=== PATIENT | female | born 1965 | race Caucasian/White ===

== ENCOUNTER → 2019-06-05 | Outpatient (CLI) | payer SELFPAY | PROVIDERS: Family Provider Internal Medicine; Visit Provider Podiatrist Foot & Ankle Surgery | DX: Z46.89 Encounter for fitting and adjustment of other specified devices (principal); S93.335D Other dislocation of left foot, subsequent encounter; X58.XXXD Exposure to other specified factors, subsequent encounter | CPT/HCPCS: L3030 ==

== ENCOUNTER → 2019-08-13 12:35 | Outpatient (BNVA) | payer MEDICARE, MEDICAID, SELFPAY | PROVIDERS: Family Provider Internal Medicine; PCP Internal Medicine; Visit Provider Specialist | DX: R25.1 Tremor, unspecified (principal) | CPT/HCPCS: 99214 ==

== ENCOUNTER → 2020-02-13 14:58 | Outpatient (BNVA) | payer MEDICARE, MEDICAID, SELFPAY | PROVIDERS: Family Provider Internal Medicine; PCP Internal Medicine; Visit Provider Podiatrist Foot & Ankle Surgery | DX: M79.672 Pain in left foot (principal) | CPT/HCPCS: 73630 ==

== ENCOUNTER 2020-03-17 15:15 | Outpatient (CLI) | payer MEDICARE, MEDICAID, SELFPAY ==
--- NOTE | 2020-03-17 15:24 | MM_ITS ---
WS: [id number] SCREENING DIGITAL MAMMOGRAM WITH CAD HISTORY: SCREENING COMPARISON: 04/25/2014 Bilateral CC and MLO views submitted. Computer aided detection analyzed. Breast composition: There are scattered areas of fibroglandular density. No suspicious masses, microc alcifications or architectural distortion. Benign calcification RIGHT breast. Overall no change in th e fibroglandular pattern. MM/[place] [id number] IMPRESSION: BI-RADS: 2-Benign FOLLOW UP: 1 Year Follow-up
--- NOTE | 2020-03-17 16:18 | XR_ITS ---
WS: [id number] SCREENING DEXA SCAN [employer] CLINICAL INFORMATION: POSTMENOPAUSAL ESTROGEN DEFICIENCY COMPARISON: None. FINDINGS: The L1-L4 bone mineral density measures 0.905 g/cm2. This corresponds to a T score score of -2.3 and Z score of -2.7. Left femoral neck bone mineral density measures 0.941 g/cm2. This corresponds to a T score of -0.5 an d Z score of -0.7. Right femoral neck bone mineral density measures 0.922 g/cm2. This corresponds to a T score -0.7of an d Z score of -0.9. Mean femoral neck bone mineral density measures 0.931 g/cm2. This corresponds to a T score of -0.6 an d Z score of -0.8. XR/XR DEXA axial skeleton* [id number] IMPRESSION: Osteopenia lumbar spine. Patient's FRAX calculated 10 year probability for major osteoporotic fracture i s 6.2 % and osteoporotic hip fracture is 0.6%.
== END 2020-03-17 15:16 | disposition home or self-care (01) ==
LOC: RADSHAW 15:23
PROVIDERS: PCP Internal Medicine; Visit Provider Physician Assistant
DX: Z78.0 Asymptomatic menopausal state (principal); Z12.31 Encounter for screening mammogram for malignant neoplasm of breast; M85.88 Other specified disorders of bone density and structure, other site
CPT/HCPCS: 77067; 77080

== ENCOUNTER → 2020-12-17 13:53 | Outpatient (BNVA) | payer MEDICARE, MEDICAID, SELFPAY | PROVIDERS: PCP Internal Medicine; Visit Provider Specialist | DX: G25.0 Essential tremor (principal); Z71.89 Other specified counseling; Z87.891 Personal history of nicotine dependence | CPT/HCPCS: 99214 ==

== ENCOUNTER → 2021-04-14 14:09 | Outpatient (BNVA) | payer MEDICARE, MEDICAID, SELFPAY | PROVIDERS: PCP Internal Medicine; Referring Provider Internal Medicine; Visit Provider Specialist | DX: R20.0 Anesthesia of skin (principal); R20.2 Paresthesia of skin; Z87.891 Personal history of nicotine dependence | CPT/HCPCS: 95910 ==

== ENCOUNTER 2021-06-06 13:13 | Emergency (ER) | payer MEDICARE, MEDICAID, SELFPAY ==
[2021-06-06 13:26] VITALS: BP 153/89; PULSE 70; RESP 18; TEMP 36.6; O2SAT 97
--- NOTE | 2021-06-06 13:46 | XRR_ITS ---
PROCEDURE INFORMATION: Exam: XR Chest Exam date and time: 06/06/2021 1:46 PM Age: 56 years old Clinical indication: Cough and shortness of breath; Additional info: Cough, congestion TECHNIQUE: Imaging protocol: XR of the chest. Views: 1 view. COMPARISON: CR Chest 2 views* [id number] 08/07/2017 9:42 AM FINDINGS: Lungs: Unremarkable. No consolidation. Pleural spaces: Unremarkable. No pleural effusion. No pneumothorax. Heart/Mediastinum: Unremarkable. No cardiomegaly. Bones/joints: Unremarkable. XR/XR chest 1V portable [id number] IMPRESSION: No acute findings.
--- NOTE | 2021-06-06 15:30 | ED_ITS ---
HPI - General Adult General: Chief complaint: Upper Respiratory Infection Stated complaint: DIFF BREATHING W/CHEST FULLNESS/TIGHT W/JUAN Time Seen by Provider: 06/06/21 14:23 History of Present Illness: HPI narrative: Patient is a 56-year-old female presents emergency room with 4 weeks of chronic cough nasal congestion. Patient tells me that she went to see a primary care provider was prescribed prednisone and antibiotics. Patient report that her symptoms improve last week since then, she has noticed increased nasal congestion and cough and now has noticed some chest tightness and wheezing. He denies any history of asthma or COPD. He has a history of seasonal allergies. Denies any fever or chills, exertional chest, pleuritic chest pain, leg swelling, history of VTE's, smoking, or cardiac hx. Onset:4 weeks ago Duration:4 weeks Location:home Severity:moderate Review of Systems Narrative: Constitutional: No fever, no chills. HEENT: No vision changes CV: No chest pain, no palpitations PULM: +cough, +dyspnea, +wheezing GI: No abdominal pain, no N/V/D. : No dysuria MSKEL: No muscle pain SKIN: No new rashes, no lesions. NEURO: No headache, no focal weakness. HEME: No visible bruises PSYCH: Normal mood PFSH ED PFSH: Family History Other CAD (coronary artery disease) Cancer Stroke Denies family history of Diabetes Hypertension Social History Smoking and tobacco status: former smoker Alcohol intake: current Alcohol intake frequency: holidays/special occasions only History of recent travel: No Physical Exam Narrative: EXAM NARRATIVE: Head: Atraumatic Eyes: PERRL, conjunctiva without injection ENT: Mucous membrane moist NECK: Supple, ROM intact LUNGS: LCTAB, +mild expiratory wheezes CV: RRR, 2+ UE pulses ABDOMEN: Soft, nontender in all quadrants EXTREMITY: Normal ROM SKIN: No rash or erythema NEURO: Awake and alert, no focal motor deficits PSYCH: Normal mood and affect Course Vital Signs: Vital signs: Vital Signs Temperature 97.8 F 06/06/21 13:26 Pulse Rate 64 06/06/21 16:03 Respiratory Rate 18 06/06/21 16:03 Blood Pressure 153/89 06/06/21 13:26 Pulse Oximetry 98 06/06/21 16:03 MDM - General Adult MDM Narrative: Medical decision making narrative: 56-year-old female presents the emergency room with 4 weeks of cough, nasal congestion, and now bilateral wheezing/chest tightness/dyspnea. On exam, patient is afebrile, lungs appear to be clear. With mild expiratory wheezes. Doubt ACS/PE or other emergent causes of chest pain. No suspicion for aortic dissection given no widened mediastinum, 2+ upper extremity pulses, or tearing pain. No suspicion for PE given no pleuritic chest pain, recent immobilization or surgery hemoptysis, or other VTE risk factors. EKG is non-ischemic. XR normal. X-ray chest not show any signs of pneumonia. Patient received DuoNeb with some significant symptom improvement. Patient instructed to follow-up with her PCP in the next week for reassessment symptoms after starting albuterol inhaler treatments. Rx albuterol PRN wheezing and cough, tessalon pearle PRN cough Disposition: Discharge. Patient counseled regarding diagnostic impression, treatment plan. Patient given ED strict return precautions to return for continuation, worsening, or development of new symptoms. Instructed to f/u w/ PCP regarding symptoms today. Patient verbalized understanding. Imaging Data^: Other Imaging: Radiologist's impression: [address] [address]JBrd ReportSigned Patient: Kirstin Lama #: [id number]: 1965Acct#:[id number]/Sex: 56 / FADM Date: 06/06/21Loc: ERRoom/Bed:Attending Dr: Ordering Provider/Ordering MD: Bernice Gudino Date of Service: 06/06/21 Procedure(s): XR chest 1V portable [id number] Accession Number(s): [id number] Report Number: [id number] PROCEDURE INFORMATION: Exam: XR Chest Exam date and time: 06/06/2021 1:46 PM Age: 56 years old Clinical indication: Cough and shortness of breath; Additional info: Cough, congestion TECHNIQUE: Imaging protocol: XR of the chest. Views: 1 view. COMPARISON: CR Chest 2 views* [id number] 08/07/2017 9:42 AM FINDINGS: Lungs: Unremarkable. No consolidation. Pleural spaces: Unremarkable. No pleural effusion. No pneumothorax. Heart/Mediastinum: Unremarkable. No cardiomegaly. Bones/joints: Unremarkable. XR/XR chest 1V portable [id number] IMPRESSION: No acute findings. Dictated By:Zabrina Davenportigned By:Zabrina Davenport MDSigned Date/Time:06/06/21 [id number]/ 1346 Discharge Plan Discharge Patient Disposition: Home Clinical Impression: Cough, Congested nose, Wheezing Condition: Stable Prescriptions: New albuterol sulfate 90 mcg/actuation aerosol powdr breath activated 2 inh inhalation Q4H PRN (Reason: wheezing) 10 Days Qty: 1 RF: 0 Tessalon Perles 100 mg capsule 100 mg PO BID PRN (Reason: cough) 5 Days Qty: 10 RF: 0 No Action gabapentin 600 mg tablet 600 mg PO TID RF: 0 cyclobenzaprine 10 mg tablet 10 mg PO ONCE RF: 0 fluticasone propionate 50 mcg/actuation spray,suspension 2 spray INTRANASAL DAILY RF: 0 duloxetine [Cymbalta] 60 mg capsule,delayed release(DR/EC) 60 mg PO DAILY RF: 0 clonazepam 0.5 mg tablet 0.5 mg PO .hs Qty: 30 RF: 5 primidone 50 mg tablet 50 mg PO BID Qty: 180 RF: 3 propranolol 80 mg capsule,extended release 24 hr 80 mg PO DAILY Qty: 90 RF: 3 Discharge Orders: Discharge ED (Routine); Ordered 06/06/21 Ordered By: Debbi Woodward Referrals: Warren Perry DO [Primary Care Provider] - Patient Instructions: Acute Cough (ED), Opioid Safety Activity Restrictions/Additional Instructions: Here are the other suggestions for cough: Take mucinex as needed Drink green tea Stay hydrated Use a cough drop Have some honey (every few hours) Use a humidifier Elevate your bed when you sleep Apply menthol scented balm to your nose to decongest Coding Level of Care Code ED Infantry Senior Sergeant for Shahla Reddy
[2021-06-06 15:44] VITALS: PULSE 68; RESP 20; O2SAT 96
[2021-06-06 15:50] VITALS: PULSE 62
[2021-06-06] MEDS: benzonatate 100 mg Capsule PO (16:02)
[2021-06-06 16:03] VITALS: PULSE 64; RESP 18; O2SAT 98
[2021-06-06 16:52] VITALS: PULSE 64; RESP 18; O2SAT 98
== END 2021-06-06 16:52 | disposition home or self-care (01) ==
PROVIDERS: Emergency Provider Emergency Medicine; PCP Internal Medicine
DX: R05.9 Cough, unspecified (principal); R09.81 Nasal congestion; R06.2 Wheezing; Z87.891 Personal history of nicotine dependence
CPT/HCPCS: 71045; 94640; 99283; J7611

== ENCOUNTER → 2021-08-19 09:07 | Outpatient (BNVA) | payer MEDICARE, MEDICAID, SELFPAY | PROVIDERS: PCP Internal Medicine; Visit Provider Internal Medicine Critical Care Medicine | DX: J45.909 Unspecified asthma, uncomplicated (principal); R05.3 Chronic cough; G47.33 Obstructive sleep apnea (adult) (pediatric); F41.9 Anxiety disorder, unspecified; K21.9 Gastro-esophageal reflux disease without esophagitis; I10 Essential (primary) hypertension | CPT/HCPCS: 82785; 85025; 86003; 99204 ==

== ENCOUNTER → 2021-09-28 10:00 | Outpatient (BNVA) | payer MEDICARE, MEDICAID, SELFPAY | PROVIDERS: PCP Internal Medicine; Visit Provider Internal Medicine Critical Care Medicine | DX: G47.33 Obstructive sleep apnea (adult) (pediatric); R05.9 Cough, unspecified; I10 Essential (primary) hypertension; K21.9 Gastro-esophageal reflux disease without esophagitis | CPT/HCPCS: 99214 ==

== ENCOUNTER 2021-10-15 10:48 | Emergency (ER) | payer MEDICARE, MEDICAID, SELFPAY ==
[2021-10-15 10:53] VITALS: BP 157/100; PULSE 71; RESP 16; TEMP 36.4; O2SAT 96; BMI 43.8
--- NOTE | 2021-10-15 11:12 | XR_ITS ---
WS: [id number] XR forearm LT 2V [id number] REASON FOR EXAM: fall with pain FINDINGS: Comminuted fracture transversely through the distal metadiaphysis of the left radius. There there is extension of the fracture line obliquely into the lateral radial scaphoid joint. There is no significant displacement of fracture fragments. Fracture does appear to involve the radial ulnar joint. Dorsal tilt is present on the lateral view. No fracture of the ulna is identified. XR/XR forearm LT 2V [id number] IMPRESSION: Distal left radial fracture as above. Most consistent with a Colles' fracture.
--- NOTE | 2021-10-15 11:12 | XR_ITS ---
WS: [id number] XR ankle LT min 3V* [id number] REASON FOR EXAM: inversion and swelling FINDINGS: Transverse fracture through the distal lateral malleolus. Minimal displacement. No fracture of the posterior or medial malleolus identified. Ankle joint spaces are intact and relatively well-preserved. XR/XR ankle LT min 3V* [id number] IMPRESSION: Transverse fracture through distal left lateral malleolus without involvement o f the syndesmosis. Minimal displacement.
--- NOTE | 2021-10-15 11:14 | ED_ITS ---
HPI - Fall General: Chief Complaint: Fall Stated Complaint: FALL, ANKLE WRIST PAIN Time Seen by Provider: 10/15/21 11:06 Source: patient Mode of arrival: EMS Limitations: no limitations History of Present Illness: This lady presents to our emergency department via EMS because of a fall in her yard. She states that she missed stepped and rolled her left ankle over and striking her left elbow and forearm. She states that she has pain in both extremities. She denies any other injury. She states she has no headache neck pain back pain etc. She does not take any direct acting anticoagulants, aspirin, warfarin etc. She states there was no syncope associated with her fall. No history of cardiac arrhythmias etc. she denies palpitations. She states that she sometimes has balance issues. She states she missed stepped and fell. She states its painful to move her left forearm and wrist as well as her left ankle. complaint: fall Fall from: standing Fall witnessed: no Place fall occurred: home Loss of consciousness: None Context: tripped/slipped Location of injury - extremities: Left: forearm and ankle Associated symptoms-after fall: Reports no associated symptoms; Denies chest pain, headache(s) or neck pain Review of Systems Const: Denies: fever(s) or chills Eyes: Denies: change in vision Card: Denies: chest pain, palpitations, irregular heart rhythm, syncope or pre-syncope Resp: Denies: dyspnea GI: Denies: nausea or vomiting : Denies: flank pain, difficulty voiding or dysuria Musc: Reports: extremity pain and extremity swelling; Denies: neck pain or back pain Skin/Breast: Denies: new lesions Neuro: Denies: headache(s), numbness in extremities, weakness in extremities, Slurred speech present, difficulty communicating thoughts or seizure-like activity Endo: Denies: polyuria, polydipsia or tired all the time Ted/Lymph: Denies: easy bruising or easy bleeding PFSH ED PFSH: Medical History Anxiety GERD (gastroesophageal reflux disease) Hypertension Surgical History History of carpal tunnel surgery of left wrist History of carpal tunnel surgery of right wrist History of partial hysterectomy Family History Other CAD (coronary artery disease) Cancer Stroke Denies family history of Diabetes Hypertension Social History Smoking and tobacco status: never smoked Alcohol intake: current Alcohol intake frequency: holidays/special occasions only History of recent travel: No Physical Exam Narrative: EXAM NARRATIVE: Pleasant comfortable in no acute distress. She makes good eye contact and answers questions in a goal-directed fashion. Const: COMMON NORMALS: no acute distress and patient oriented x3 NUTRITIONAL APPEARANCE: overweight HENMT: COMMON NORMALS: normocephalic, atraumatic, Normal nasal mucous membranes and turbinates present and moist oral mucous membranes HEAD & SCALP: normocephalic and atraumatic FACE & SINUS: normal facial exam NOSE: Normal nasal mucous membranes and turbinates present Eye: COMMON NORMALS: Equal, round and reactive pupils present and EOMs intact bilaterally PUPIL: Yes Equal, round and reactive pupils present Neck/C-Spine: COMMON NORMALS: full ROM CERVICAL SPINE: Yes cervical ROM normal, No pain with cervical ROM, No Cervical spine tenderness, No step off deformity, No Paracervical muscle tenderness and No Paracervical spasm Chest: COMMONS NORMALS: normal inspection of the chest Resp: COMMON NORMALS: normal respiratory effort and No use of accessory muscles EFFORT & INSPECTION: Yes able to speak in complete sentences Cardio: COMMON NORMALS: regular rate and Peripheral pulses 2+ throughout RATE: regular rate PERIPHERAL PULSES: Peripheral pulses 2+ throughout GI: COMMON NORMALS: Soft to palpation and non-tender PALPATION: Yes Soft to palpation Back/Pelvis: COMMON NORMALS: no thoracic nor lumbar tenderness, thoraco-lumbar ROM normal and straight leg raise negative bilaterally PELVIS: Yes no pain with anterior-posterior compression and Yes no pain with lateral compression Extremity: GENERAL: Yes normal exam except as noted LEFT UPPER EXTREMITY: Yes upper arm (Tender over elbow and wrist.) Left upper arm: Yes inspection (No deformity.) and Yes neurovascular exam (Intact. Normal sensation and cap refill) LEFT LOWER EXTREMITY: Yes ankle joint (Tender lateral malleolus.) Left ankle: Yes inspection (Swelling over the lateral malleolus) and Yes neurovascular exam Neuro: COMMON NORMALS: patient oriented x3, moves all extremities, no focal motor deficits and no sensory deficits noted CRANIAL NERVES: Yes CN normal except as noted SPEECH: speech normal Course Reevaluation(s): Reevaluation #1: Discussed current findings and plan of care with patient and family who are now present. Time: 12:58 Consultations: Consultation #1: Ortho (Dennis): Reviewed current injuries. He made treatment suggestions and will follow. Time: 12:58 Vital Signs: Vital signs: Vital Signs Temperature 97.6 F 10/15/21 10:53 Pulse Rate 64 10/15/21 13:29 Respiratory Rate 15 10/15/21 13:29 Blood Pressure 157/100 10/15/21 13:29 Pulse Oximetry 96 10/15/21 10:53 MDM - Fall Medical Decision Making Patient has a ground-level fall with nondisplaced fractures of her left wrist as well as her left distal fibula. Both of them are closed intact and do not require any intervention in the emergency department other than supportive splinting. I discussed with Dr. Collins consult an orthopedic surgeon who agrees with the plan. We will also provide her with a walker to aid in her ambulation. We discussed findings, expected course and follow-up with the patient and family. No evidence at this time of any other ongoing emergency medical condition to suggest head, axial spine or other extremity injury. Medical Records I reviewed the patient's medical records. Lab Data Radiology Impressions Ankle X-Ray 10/15/21 11:12 IMPRESSION: Transverse fracture through distal left lateral malleolus without involvement of the syndesmosis. Minimal displacement. Forearm X-Ray 10/15/21 11:12 IMPRESSION: Distal left radial fracture as above. Most consistent with a Colles' fracture. Wrist X-Ray 10/15/21 12:58 IMPRESSION: 1. Mildly comminuted radial metaphyseal fracture with intra-articular extension. 2. Distal ulna intact. Discharge Plan Discharge Patient Disposition: Home Clinical Impression: Fracture of wrist Qualifiers: Encounter type: initial encounter Fracture type: closed Laterality: left Qualified Code(s): S62.102A - Fracture of unspecified carpal bone, left wrist, initial encounter for closed fracture Fibula fracture Qualifiers: Encounter type: initial encounter Fibula location: lateral malleolus Fracture type: closed Fracture alignment: nondisplaced Laterality: left Qualified Code(s): S82.65XA - Nondisplaced fracture of lateral malleolus of left fibula, initial encounter for closed fracture Condition: Stable Prescriptions: New tramadol 50 mg tablet 50 mg PO BID PRN (Reason: pain) Qty: 14 0RF No Action gabapentin 600 mg tablet 600 mg PO TID 0RF cyclobenzaprine 10 mg tablet 10 mg PO ONCE 0RF fluticasone propionate 50 mcg/actuation spray,suspension 2 spray INTRANASAL DAILY 0RF duloxetine [Cymbalta] 60 mg capsule,delayed release(DR/EC) 60 mg PO DAILY 0RF benzonatate 100 mg capsule 100 mg PO BID PRN0RF Breo Ellipta 100-25 mcg/dose blister with device 1 inh inhalation DAILY 30 Days Qty: 60 2RF albuterol sulfate 90 mcg/actuation HFA aerosol inhaler 2 puff inhalation Q6H PRN (Reason: shortness of breath or wheezing) 30 Days Qty: 8.5 3RF hydrochlorothiazide 12.5 mg tablet 12.5 mg PO DAILY 0RF Incruse Ellipta 62.5 mcg/actuation blister with device 1 inh inhalation DAILY 30 Days Qty: 30 3RF clonazepam 0.5 mg tablet 0.5 mg PO .hs Qty: 30 5RF primidone 50 mg tablet 50 mg PO BID Qty: 180 3RF propranolol 80 mg capsule,extended release 24 hr 80 mg PO DAILY Qty: 90 3RF Discharge Orders: Discharge ED (Routine); Ordered 10/15/21 Ordered By: French Hoyos Other Ambulatory Orders: DME: Walker (Order) Location: None Selected Ordered By: French Hoyos Referrals: Anderson Collins MD [Physician] - (follow up per ED consult) Warren Perry DO [Primary Care Provider] - Discharge Activity: Limit activity as instructed and Use walker/crutches as instructed Patient Instructions: Ankle Fracture (ED), Opioid Safety Activity Restrictions/Additional Instructions: As we discussed you have a nondisplaced broken bone in your left ankle as well as in your left wrist. We have provided splints for both joints. Use the walk er we have ordered to help with your mobility around the home. Call the orthopedic surgeon Dr. Collins on Tuesday to arrange a follow-up. Should you have increasing pain or any other concerns or discomfort at any time return to this or the nearest emergency department. Coding Level of Care Code ED Component Prep Operator for Shahla Fwkristel Exam Comprehensive
--- NOTE | 2021-10-15 12:58 | XR_ITS ---
WS: [id number] LEFT WRIST: 3 VIEW(S) TECHNIQUE: PA, oblique and lateral. HISTORY: fall-better views of fracture COMPARISON: Forearm radiographs 10/15/2021. Acute distal radial metaphyseal fracture with extension to the articular surface. Very minimal displa cement of the fracture along the medial and lateral surface of the radius. Mild narrowing of the radi ocarpal joint space. Ulna is intact. Mild soft tissue edema. XR/XR wrist LT min 3V* [id number] IMPRESSION: 1. Mildly comminuted radial metaphyseal fracture with intra-articular extensio n. 2. Distal ulna intact.
[2021-10-15 13:29] VITALS: BP 157/100; PULSE 64; RESP 15
[2021-10-15] MEDS: HYDROcodone-acetaminophen 5-325 mg Tablet 1 TAB PO (13:35)
--- NOTE | 2021-10-15 14:56 | PC.NURSE ---
Spoke with [facility] medical equipment about a larger wrist brace. ME stated they had a larger sized and asked for a Rx. ME also asked for updates to scripts for walking boot and walker. Passed on to physician and scripts updated.
[2021-10-15] MEDS: HYDROcodone-acetaminophen 10-325 mg Tablet 1 TAB PO (15:54)
== END 2021-10-15 17:09 | disposition home or self-care (01) ==
PROVIDERS: Emergency Provider Emergency Medicine; PCP Internal Medicine
DX: S52.572A Other intraarticular fracture of lower end of left radius, initial encounter for closed fracture (principal); S82.65XA Nondisplaced fracture of lateral malleolus of left fibula, initial encounter for closed fracture; W18.39XA Other fall on same level, initial encounter; Y92.096 Garden or yard of other non-institutional residence as the place of occurrence of the external cause
CPT/HCPCS: 73090; 73110; 73610; 99283

== ENCOUNTER → 2021-10-16 11:10 | Outpatient (BNVA) | payer MEDICARE, MEDICAID, SELFPAY | PROVIDERS: PCP Internal Medicine; Referring Provider Emergency Medicine; Visit Provider Orthopaedic Surgery | DX: S52.502A Unspecified fracture of the lower end of left radius, initial encounter for closed fracture (principal); S82.62XA Displaced fracture of lateral malleolus of left fibula, initial encounter for closed fracture; W18.31XA Fall on same level due to stepping on an object, initial encounter | CPT/HCPCS: 25600; 27786 ==

== ENCOUNTER 2021-10-16 12:22 | Outpatient (CLI) | payer MEDICARE, MEDICAID, SELFPAY | END 2021-10-16 12:23 | disposition home or self-care (01) | LOC: SPT 12:23 | PROVIDERS: PCP Internal Medicine; Visit Provider Orthopaedic Surgery | DX: Z46.89 Encounter for fitting and adjustment of other specified devices (principal); S62.109 Fracture of unspecified carpal bone, unspecified wrist; X58.XXXS Exposure to other specified factors, sequela | CPT/HCPCS: 97760; L3984 ==

== ENCOUNTER → 2021-11-11 13:07 | Outpatient (BNVA) | payer MEDICARE, MEDICAID, SELFPAY | PROVIDERS: PCP Internal Medicine; Visit Provider Orthopaedic Surgery | DX: S52.502A Unspecified fracture of the lower end of left radius, initial encounter for closed fracture (principal); S82.62XA Displaced fracture of lateral malleolus of left fibula, initial encounter for closed fracture; X58.XXXA Exposure to other specified factors, initial encounter | CPT/HCPCS: 73110; 73610 ==

== ENCOUNTER 2021-12-01 12:56 | Outpatient (CLI) | payer MEDICARE, MEDICAID, SELFPAY ==
--- NOTE | 2021-12-01 13:53 | PFTS_ITS ---
Date of Study:12/01/21 Date of Dictation: 12/05/21 MECHANICS: Postbronchodilator forced vital capacity (FVC) is reduced. Postbronchodilator forced expiratory volume in one second (FEV1) is reduced. FEV1/FVC is normal. There is no significant response to bronchodilator FLOW VOLUME LOOP: normal LUNG VOLUMES: not measured DIFFUSING CAPACITY FOR CARBON MONOXIDE: normal. INTERPRETATION: The Spirometry suggestive of non specific restriction. Lung volume measurements are not available. . There is no significant response to bronchodilators. Gas transfer is normal. Clinical correlation recommended. MTDD
== END 2021-12-01 12:57 | disposition home or self-care (01) ==
LOC: RT 12:56
PROVIDERS: PCP Internal Medicine; Visit Provider Internal Medicine Critical Care Medicine
DX: J45.909 Unspecified asthma, uncomplicated (principal)
CPT/HCPCS: 94060; 94729

== ENCOUNTER → 2021-12-02 13:53 | Outpatient (BNVA) | payer MEDICARE, MEDICAID, SELFPAY | PROVIDERS: PCP Internal Medicine; Visit Provider Orthopaedic Surgery | DX: S82.62XD Displaced fracture of lateral malleolus of left fibula, subsequent encounter for closed fracture with routine healing (principal); S62.102D Fracture of unspecified carpal bone, left wrist, subsequent encounter for fracture with routine healing; X58.XXXD Exposure to other specified factors, subsequent encounter | CPT/HCPCS: 73110; 73610; 99024 ==

== ENCOUNTER → 2021-12-28 10:51 | Outpatient (BNVA) | payer MEDICARE, MEDICAID, SELFPAY | PROVIDERS: PCP Internal Medicine; Visit Provider Internal Medicine Critical Care Medicine | DX: R05.3 Chronic cough (principal); G47.33 Obstructive sleep apnea (adult) (pediatric); J31.0 Chronic rhinitis; J32.9 Chronic sinusitis, unspecified | CPT/HCPCS: 99214 ==

== ENCOUNTER → 2021-12-30 13:53 | Outpatient (BNVA) | payer MEDICARE, MEDICAID, SELFPAY | PROVIDERS: PCP Internal Medicine; Visit Provider Orthopaedic Surgery | DX: S82.62XA Displaced fracture of lateral malleolus of left fibula, initial encounter for closed fracture (principal); X58.XXXA Exposure to other specified factors, initial encounter; S62.102A Fracture of unspecified carpal bone, left wrist, initial encounter for closed fracture; S82.402A Unspecified fracture of shaft of left fibula, initial encounter for closed fracture | CPT/HCPCS: 73610; 99024 ==

== ENCOUNTER 2022-01-18 06:00 | Outpatient (RCR) | payer MEDICARE, MEDICAID, SELFPAY | END 2022-02-03 23:59 | disposition home or self-care (01) | LOC: SOT 06:00 | PROVIDERS: PCP Internal Medicine; Referring Provider Orthopaedic Surgery; Visit Provider Orthopaedic Surgery | DX: S62.102D Fracture of unspecified carpal bone, left wrist, subsequent encounter for fracture with routine healing (principal); X58.XXXD Exposure to other specified factors, subsequent encounter | CPT/HCPCS: 97018; 97110; 97140; 97166 ==

== ENCOUNTER 2022-02-04 06:00 | Outpatient (RCR) | payer MEDICARE, MEDICAID, SELFPAY | END 2022-03-05 23:59 | disposition home or self-care (01) | LOC: SOT 06:00 | PROVIDERS: PCP Internal Medicine; Referring Provider Orthopaedic Surgery; Visit Provider Orthopaedic Surgery | DX: S52.502D Unspecified fracture of the lower end of left radius, subsequent encounter for closed fracture with routine healing (principal); X58.XXXD Exposure to other specified factors, subsequent encounter | CPT/HCPCS: 97018; 97110; 97140 ==

== ENCOUNTER 2022-05-26 12:34 | Outpatient (CLI) | payer MEDICARE, MEDICAID, SELFPAY ==
--- NOTE | 2022-05-26 13:13 | MM_ITS ---
WS: [id number] VIEWS: MLO and CC views both breasts. 3D digital tomosynthesis is also included in this exam. Comparison made with prior exam of 11/26/2008, 08/11/2012, 04/25/2014, 03/17/2020,. Findings: There was no sign of mass, architectural distortion or suspicious calcification in either breast. Sc attered fibroglandular densities MM/[place] [id number] Impression: BI-RADS: 2-Benign FOLLOW-UP: 1 Year Follow-up This mammogram was also analyzed by the Computer Aided Detection System R2 Imag e Hair Stylist.
--- NOTE | 2022-05-26 13:18 | XR_ITS ---
WS: [id number] SCREENING DEXA SCAN [employer] CLINICAL INFORMATION: POSTMENOPAUSAL COMPARISON: March 17, 2020 FINDINGS: The L1-L4 bone mineral density measures 0.879 g/cm2. This corresponds to a T score score of -2.5 and Z score of -2.7. Right femoral neck bone mineral density measures 0.848 g/cm2. This corresponds to a T score -1.3of an d Z score of -1.3. XR/XR DEXA axial skeleton* [id number] IMPRESSION: Osteoporosis lumbar spine at the lower end of the range. Osteopenia RIGHT femor al neck. Patient's FRAX calculated 10 year probability for major osteoporotic fracture i s 7.9 % and osteoporotic hip fracture is 1.1%. Since 2019, bone mineral density in the lumbar spine has decreased -2.9% and de creased in the RIGHT femoral neck -8.0%.
== END 2022-05-26 12:35 | disposition home or self-care (01) ==
LOC: RAD 12:35
PROVIDERS: PCP Internal Medicine; Visit Provider Nurse Practitioner Family
DX: Z78.0 Asymptomatic menopausal state (principal); Z12.31 Encounter for screening mammogram for malignant neoplasm of breast
CPT/HCPCS: 77063; 77067; 77080

== ENCOUNTER → 2022-10-04 15:26 | Outpatient (BNVA) | payer MEDICARE, MEDICAID, SELFPAY | PROVIDERS: PCP Internal Medicine; Visit Provider Otolaryngology | DX: J32.9 Chronic sinusitis, unspecified (principal); J31.0 Chronic rhinitis; J34.2 Deviated nasal septum; J34.3 Hypertrophy of nasal turbinates; M26.623 Arthralgia of bilateral temporomandibular joint; Z68.42 Body mass index [BMI] 45.0-49.9, adult; E66.9 Obesity, unspecified | CPT/HCPCS: 99203 ==

== ENCOUNTER → 2023-10-18 13:28 | Outpatient (BNVA) | payer MEDICARE, SELFPAY | PROVIDERS: PCP Internal Medicine; Visit Provider Nurse Practitioner Family | DX: R39.9 Unspecified symptoms and signs involving the genitourinary system (principal) | CPT/HCPCS: 81000 ==

== ENCOUNTER 2024-05-29 10:45 | Outpatient (CLI) | payer MEDICARE, SELFPAY ==
--- NOTE | 2024-05-29 10:54 | CT_ITS ---
WS: [id number] CT NECK WITHOUT CONTRAST HISTORY: NECK MASS TECHNIQUE: Contiguous 2 mm axial images are performed through the neck without intravenous contrast. Sagittal and coronal reformats are also submitted. All CT scans at [facility] use at least on e of these dose optimization techniques: automated exposure control; mA and/or kV adjustment per chiqui ent size (includes targeted exams where dose is matched to clinical indication); or iterative reconst ruction. CONTRAST: CONTRAST: Omnipaque 350; 100 mL IV. DLP: 226.89 mGy.cm COMPARISON: 01/12/2019 Markers placed along the RIGHT neck at the area of concern. Deep to the marker there is no mass ident ified. The platysmas band is normally visualized. Small superficial vessels are noted. There is no ad enopathy. Symmetric and normal appearance of the sternocleidomastoid muscles. There are a few small c ervical chain lymph nodes. These lymph nodes are symmetric and bilateral. Largest lymph nodes measure approximately 9 mm at level 2A. No adenopathy. Noted are elongated bilateral styloid processes or possibly calcification of the stylohyoid ligament. This is a bilateral finding with each process measuring approximately 4 cm. Tips of the elongated st yloid processes medially in the posterolateral parapharyngeal soft tissues at the oropharynx. Thyroid gland and salivary glands are normally enhancing with no masses. No osseous abnormalities. Visualized portions of the skull base demonstrate no abnormalities. Orbits and globes are within norm al limits. No soft tissue masses. Visualized paranasal sinuses and mastoid air cells are normal. Lung apices are clear. CT/CT neck wo con [id number] IMPRESSION: 1. No mass along the RIGHT neck at the area palpable abnormality. 2. Small bilateral cervical chain lymph nodes. 3. Bilateral elongated styloid processes or possibly calcified stylohyoid liga ments. Elongated styloid processes extend to abut the lateral parapharyngeal so ft tissue in the region of the oropharynx. This can often be associated with dy sphagia.
== END 2024-05-29 10:46 | disposition home or self-care (01) ==
LOC: RAD 10:48
PROVIDERS: PCP Internal Medicine; Visit Provider Internal Medicine
DX: R22.1 Localized swelling, mass and lump, neck (principal); M61.9 Calcification and ossification of muscle, unspecified
CPT/HCPCS: 70490

== ENCOUNTER → 2024-09-28 13:20 | Outpatient (BNVA) | payer MEDICARE, SELFPAY | PROVIDERS: PCP Family Medicine | DX: R30.9 Painful micturition, unspecified (principal); N12 Tubulo-interstitial nephritis, not specified as acute or chronic | CPT/HCPCS: 81000; 87086 ==

== ENCOUNTER → 2024-10-09 10:13 | Outpatient (BNVA) | payer MEDICARE, SELFPAY | PROVIDERS: PCP Family Medicine; Visit Provider Emergency Medicine | DX: R39.9 Unspecified symptoms and signs involving the genitourinary system (principal); R31.9 Hematuria, unspecified; N23 Unspecified renal colic; Z87.442 Personal history of urinary calculi | CPT/HCPCS: 80048; 81000; 85025 ==

== ENCOUNTER → 2024-10-10 11:17 | Outpatient (BNVA) | payer MEDICARE, SELFPAY | PROVIDERS: PCP Family Medicine; Visit Provider Emergency Medicine | DX: R31.9 Hematuria, unspecified (principal) | CPT/HCPCS: 87086 ==

== ENCOUNTER 2024-10-12 14:51 | Outpatient (CLI) | payer MEDICARE, SELFPAY ==
--- NOTE | 2024-10-12 15:00 | CT_ITS ---
WS: [id number] CT ABDOMEN AND PELVIS NONCONTRAST HISTORY: history of kidney stone, pain and hematuria TECHNIQUE: Imaging performed through the abdomen and pelvis. Coronal and sagittal reformats are submitted. All CT scans at [facility] use at least one of these dose optimization techniques: automated exposure control; mA and/or kV adjustment per patient size (includes targeted exams where dose is matched to clinical indication); or iterative reconstruction. DLP: 1068.34 mGy.cm COMPARISON: 08/07/2017 Lower thorax: Lung bases are clear. Visualized heart is normal. No hiatal hernia. Liver: Normal size liver. No mass or bile duct dilatation. Gallbladder: Well-distended gallbladder with numerous stones. No adjacent inflammation. Common bile duct is normal. Pancreas: Normal size and attenuation. Normal pancreatic duct. No pancreatitis or mass. Spleen: Normal. Adrenal glands: Normal. No mass. Right kidney: Perinephric stranding with no obstruction. Nonobstructing 7 mm calcification lower pole. No hydronephrosis. Normal caliber RIGHT ureter. Left kidney: Normal size kidney with mild perinephric stranding. No obstruction or renal calcification. No ureteral calcification. Aorta: Normal abdominal aorta, no aneurysm or atherosclerosis. No free fluid, intraperitoneal air or significant lymphadenopathy. GI tract: Prior gastric bypass surgery. No small bowel obstruction. Normal appendix. No colitis. Mild diverticular burden in the sigmoid. Abdominal wall: Small ventral abdominal wall hernia at the level of the umbilicus. Pelvis: Prior hysterectomy. No free fluid. No lymph nodes. Osseous structures: Unremarkable. CT/CT kidney stone [id number] IMPRESSION: 1. No hydronephrosis. No ureteral calcifications. 2. Bilateral perinephric stranding. Correlate for possible UTI. 3. Nonobstructing calcification RIGHT renal pelvis. 4. Normal appendix. 5. Small umbilical hernia. 6. Mild sigmoid diverticulosis without acute diverticulitis. 7. Prior hysterectomy. 8. Prior gastric bypass. 9. Cholelithiasis. Numerous gallstones.
== END 2024-10-12 14:52 | disposition home or self-care (01) ==
LOC: RAD 14:53
PROVIDERS: PCP Family Medicine; Visit Provider Emergency Medicine
DX: Z87.442 Personal history of urinary calculi (principal); R31.9 Hematuria, unspecified; N23 Unspecified renal colic; N28.89 Other specified disorders of kidney and ureter; K42.9 Umbilical hernia without obstruction or gangrene; K57.30 Diverticulosis of large intestine without perforation or abscess without bleeding; Z90.710 Acquired absence of both cervix and uterus; Z98.890 Other specified postprocedural states; K80.20 Calculus of gallbladder without cholecystitis without obstruction
CPT/HCPCS: 74176

== ENCOUNTER → 2024-10-27 13:18 | Outpatient (BNVA) | payer MEDICARE, SELFPAY | PROVIDERS: PCP Family Medicine; Visit Provider Nurse Practitioner | DX: R39.89 Other symptoms and signs involving the genitourinary system (principal) | CPT/HCPCS: 81000 ==

== ENCOUNTER → 2025-02-12 15:12 | Outpatient (BNVA) | payer MEDICARE, SELFPAY | PROVIDERS: PCP Family Medicine; Visit Provider Internal Medicine | DX: J45.909 Unspecified asthma, uncomplicated (principal); G47.33 Obstructive sleep apnea (adult) (pediatric); J44.9 Chronic obstructive pulmonary disease, unspecified | CPT/HCPCS: 36415; 85025; 99204; 99214 ==

== ENCOUNTER 2025-02-18 05:52 | Outpatient (CLI) | payer MEDICARE, SELFPAY ==
--- NOTE | 2025-02-18 06:32 | USCV_ITS ---
Kirstin Lama Age: 59 Gender: F : 1965 Exam Date: 02/18/2025 06:38 Ordering Phys: Logan Almonte MD Technologist: LIDIA [place] [facility] [place] cp sob afib BP: 120 / 70 HR: 62 Rhythm: Sinus Technical Quality: Adequate MEASUREMENTS (Male / Female) Normal Values 2D ECHO LV Diastolic Diameter PLAX 4.1 cm 4.2 - 5.9 / 3.9 - 5.3 cm IVS Diastolic Thickness 1.2 cm 0.6 - 1.0 / 0.6 - 0.9 cm IVS Systolic Thickness 1.7 cm LVPW Diastolic Thickness 1.5 cm 0.6 - 1.0 / 0.6 - 0.9 cm LVPW Systolic Thickness 1.9 cm LVOT Diameter 2.0 cm LV Ejection Fraction 2D Teich 61.8 % LV Ejection Fraction MOD 4C 60.5 % LV Ejection Fraction MOD 2C 74.9 % LV Ejection Fraction 2C AL 75.2 % LA Diameter 4.3 cm RA Systolic Volume 4C AL 29.2 ml RA Systolic Volume 4C MOD 27.8 ml Aorta at Sinotubular Diameter 3.1 cm M-MODE LA Ao Ratio MM 1.3 AV Cusp Separation MM 2.7 cm DOPPLER AV Peak Velocity 125.0 cm/s LVOT Peak Velocity 103.0 cm/s AV Area Cont Eq vti 2.9 cm squared AV Area Cont Eq pk 2.7 cm squared MV Peak Velocity 111.0 cm/s MV Area PHT 3.6 cm squared Mitral E to A Ratio 1.0 TR Peak Velocity 261.0 cm/s TR Peak Gradient 27.2 mmHg TV Peak E Velocity 85.0 cm/s FINDINGS Left Ventricle Normal left ventricular size and systolic function, EF 61%.no regional wall motion abnormalities. Mild left ventricular hypertrophy. Right Ventricle Normal right ventricular size and systolic function. Right Atrium The right atrium is normal in size. Left Atrium The left atrium is normal in size. Mitral Valve No gross abnormalities noted Aortic Valve Trace to mild aortic valve regurgitation. Tricuspid Valve Trace tricuspid valve regurgitation. Estimated pulmonary artery peak systolic pressure 30 mmHg Pulmonic Valve Pulmonic valve not well visualized. Pericardium Normal pericardium without effusion. Aorta Normal ascending aorta dimension. IVC Inferior vena cava not visualized. CONCLUSIONS Normal left ventricular size and systolic function, EF 61%.no regional wall motion abnormalities. Mild left ventricular hypertrophy. Trace to mild aortic valve regurgitation. Trace tricuspid valve regurgitation. Estimated pulmonary artery peak systolic pressure 30 mmHg. There is no pericardial effusion. There are no intracardiac masses. No similar previous studies are available for comparison Dr Jefry Enamorado MD FAC (Electronically Signed) Final Date: 19 February 2025 10:01 S
== END 2025-02-18 05:53 | disposition home or self-care (01) ==
LOC: RAD 05:54
PROVIDERS: PCP Family Medicine; Visit Provider Family Medicine
DX: R07.9 Chest pain, unspecified (principal); R06.02 Shortness of breath; I48.91 Unspecified atrial fibrillation; I08.2 Rheumatic disorders of both aortic and tricuspid valves
CPT/HCPCS: 93306

== ENCOUNTER 2025-03-12 10:07 | Outpatient (CLI) | payer MEDICARE, SELFPAY | END 2025-03-12 10:08 | disposition home or self-care (01) | LOC: RT 10:11 | PROVIDERS: PCP Family Medicine; Visit Provider Internal Medicine | DX: J44.9 Chronic obstructive pulmonary disease, unspecified (principal) | CPT/HCPCS: 94010; 94729 ==

== ENCOUNTER → 2025-05-10 08:44 | Outpatient (BNVA) | payer MEDICARE, SELFPAY | PROVIDERS: PCP Family Medicine; Visit Provider Internal Medicine | DX: J45.50 Severe persistent asthma, uncomplicated (principal); G47.33 Obstructive sleep apnea (adult) (pediatric); J30.9 Allergic rhinitis, unspecified; T78.40XA Allergy, unspecified, initial encounter; X58.XXXA Exposure to other specified factors, initial encounter | CPT/HCPCS: 36415; 86003; 99214; Q3014 ==